=== PATIENT | female | born 1980 | race Caucasian/White ===

== ENCOUNTER 2018-03-25 07:20 | Emergency (ER) | payer OTHER ==
[~2018-03-25] VITALS: Ht 152.4 cm; Wt 54.4 kg
[2018-03-25 07:30] VITALS: BP 142/101; Ht 152.4 cm; Wt 54.4 kg
== END 2018-03-25 08:37 | disposition other institution (70) ==
LOC: ED 07:20
DX: I10 Essential (primary) hypertension (principal); Z02.89 Encounter for other administrative examinations; Z00.00 Encounter for general adult medical examination without abnormal findings